=== PATIENT | female | born 1960 | race Caucasian/White ===

== ENCOUNTER 2017-03-06 06:03 | Day surgery (SDC) | payer OTHER ==
--- NOTE | 2017-03-04 13:33 | EKG REPORT ---
SEVERITY:- NORMAL ECG - SINUS RHYTHM : Confirmed by: Sergio Osuna MD 04-Mar-2017 13:32:38
[2017-03-04 13:39] LABS: APPEARANCE,URINE SLIGHTLY-CLOUDY; BILIRUBIN,URINE NEGATIVE (NEGATIVE); GLUCOSE, URINE >=500 mg/dL (NEGATIVE); KETONES,URINE NEGATIVE (NEGATIVE); LEUKOCYTE ESTERASE,URINE LARGE (NEGATIVE); NITRITE,URINE NEGATIVE (NEGATIVE); PROTEIN,URINE NEGATIVE (NEGATIVE); URINE SPECIFIC GRAVITY 1.026; UROBILINOGEN,URINE NEGATIVE mg/dL (<2.0)
--- NOTE | 2017-03-04 13:48 | RADIOLOGY REPORT (SQ) ---
EXAM DESCRIPTION: CHEST PA/LATERAL COMPLETED DATE/TIME: 03/04/2017 12:59 pm REASON FOR STUDY: PRE OP COMPARISON: None. EXAM PARAMETERS: NUMBER OF VIEWS: two views TECHNIQUE: Digital Frontal and Lateral radiographic views of the chest acquired. RADIATION DOSE: NA LIMITATIONS: none FINDINGS: LUNGS AND PLEURA: No opacities, masses or pneumothorax. No pleural effusion. MEDIASTINUM AND HILAR STRUCTURES: No masses or contour abnormalities. HEART AND VASCULAR STRUCTURES: Heart normal size. No evidence for failure. BONES: No acute findings. HARDWARE: None in the chest. OTHER: No other significant finding. IMPRESSION: NO SIGNIFICANT RADIOGRAPHIC FINDING IN THE CHEST. TECHNICAL DOCUMENTATION: JOB ID: [id number] [employer]- All Rights Reserved
[2017-03-04 14:00] LABS: HEMATOCRIT 43.5 % (36.0-47.0); HEMOGLOBIN 14.7 g/dL (12.0-15.5); HGB HCT DIFFERENCE 0.6; MEAN CORPUSCULAR HEMOGLOBIN 29.2 pg (27.0-33.4); MEAN CORPUSCULAR HGB CONC 33.8 g/dL (32.0-36.0); MEAN CORPUSCULAR VOLUME 87 fl (80-97); RED BLOOD COUNT 5.03 10^6/uL (3.72-5.28); RED CELL DISTRIBUTION WIDTH 13.7 % (11.5-14.0); WHITE BLOOD COUNT 10.4 10^3/uL (4.0-10.5)
[2017-03-04 14:14] LABS: ANION GAP 15 (5-19); BLOOD UREA NITROGEN 26 mg/dL (7-20); CALCIUM 9.9 mg/dL (8.4-10.2); CARBON DIOXIDE 30 mmol/L (22-30); CHLORIDE 98 mmol/L (98-107); CREATININE RESULT 0.88 mg/dL (0.52-1.25); GLUCOSE 156 mg/dL (75-110); POTASSIUM 5.1 mmol/L (3.6-5.0); SODIUM 143.3 mmol/L (137-145)
[~2017-03-06 06:03] MED LIST: LIDOCAINE 0.5% INJ-PF (5 MG/ML) 50 ML SDV SUBCUT PRN; NORMAL SALINE 1000 ML (RENAL PATIENTS) IV PRN
[2017-03-06] MEDS ORDERED: CEFAZOLIN 1 GM/D5W RTU 1 GM/50 ML RTUPB IV ONE (06:06)
[2017-03-06] MEDS ORDERED: LIDOCAINE 1%/EPINEPHRINE INJ 20 ML VIAL ONE (06:27)
[2017-03-06 07:04] LABS: POTASSIUM 4.4 mmol/L (3.6-5.0)
[2017-03-06] MEDS ORDERED: LIDOCAINE 2% INJ-PF (20 MG/ML) 10 ML AMPUL ONE (07:57)
[2017-03-06] MEDS ORDERED: PROPOFOL INJ 200 MG/20 ML VIAL IV ONE (07:57)
[2017-03-06] MEDS ORDERED: FENTANYL CITRATE INJ/PF 100 MCG/2 ML AMPUL ONE (07:57)
[2017-03-06] MEDS ORDERED: MIDAZOLAM 2 MG/2 ML INJ ONE (07:57)
[2017-03-06] MEDS ORDERED: OXYCODONE-ACETAMINOPHEN 5-325 MG TABLET PO PRN ×2 (08:27→09:20)
[2017-03-06] MEDS ORDERED: ONDANSETRON HCL INJ/PF 4 MG/2 ML SDV IV PRN (08:27)
[2017-03-06] MEDS ORDERED: FENTANYL CITRATE INJ/PF 100 MCG/2 ML AMPUL IV PRN ×2 (08:27)
[2017-03-06] MEDS ORDERED: PROMETHAZINE HCL INJ 25 MG/1 ML VIAL IV PRN ×2 (08:27)
[2017-03-06] MEDS ORDERED: MEPERIDINE HCL/PF INJ 25 MG/1 ML DISP.SYRIN IV PRN (08:27)
[2017-03-06] MEDS ORDERED: DIPHENHYDRAMINE HCL 50 MG/ML VIAL IV PRN (08:27)
[2017-03-06] MEDS ORDERED: MORPHINE SULFATE 10 MG/ML INJ INJ PRN (09:21)
[2017-03-06] MEDS ORDERED: PROMETHAZINE HCL INJ 25 MG/1 ML VIAL IM PRN (09:22)
--- NOTE | 2017-03-06 10:33 | OPERATIVE REPORT E ---
Operative Report NAME: LISBET PEÑA : 1960 AGE: 56Y DATE OF SURGERY: 03/06/2017 ROOM: PREOPERATIVE DIAGNOSES: 1. LEFT VULVAR LESION. 2. POSITIVE ECC, WITH AN ASCUS-POSITIVE HPV PAP. 3. MORBID OBESITY. PROCEDURE: Bi-lobe excision of vulvar lesion, and cold knife conization. SURGEON: MITCHELL ZAVALA M.D. ESTIMATED BLOOD LOSS: Less than 10 mL. COMPLICATIONS: None. ANESTHESIA: LMAC, paracervical block, and local. FINDINGS: Were that of a normal-appearing cervix, morbid obesity, difficulty locating the cervix proper. An approximately 3 x 3 cm vulvar pedunculated mass was appreciated. It was very fluctuant in nature, protruding from the left vulva. The usual risks of bleeding, infection, anesthesia, and damage to organs or tissue discussed with patient who understood. DESCRIPTION OF PROCEDURE: Patient was taken to the operating room and placed in the modified lithotomy position and adequate anesthesia ascertained. Surgical time out performed, EUA performed. Bladder was left undrained and a wide local excision of the vulvar area is performed after local infiltration with 1% lidocaine with epinephrine. The defect was oversewn with multiple layers of 3-0 Chromic catgut. Good hemostasis was assured and glue was placed on the incision site. Attention was then turned to the cervix which, with great difficulty, the cervix was located with bi-valve speculum. The area was infiltrated with 1% lidocaine with epinephrine. Local bi-lobed excision of the cone of the cervix was performed. It was a small cone due the small cervix. Endocervical biopsy was unproductive with no tissue. Uterus is otherwise unable to be sounded. Specimen was sent for pathology. It was marked at 12 o'clock position. Bleeding was nil after cautery of the bed of the cone with the ball electrode. At completion of procedure, patient awakened and taken to recovery room in stable condition. DICTATING PHYSICIAN: MITCHELL ZAVALA M.D. [id number] PHY#: [id number] ID: [id number] JOB#: [id number] ACCT: [id number] cc:MITCHELL ZAVALA M.D. >
[2017-03-06 13:35] VITALS: BP 133/85
[2017-03-06] MEDS ORDERED: IBUPROFEN 800 MG TABLET PO SCH (14:00)
== END 2017-03-06 11:05 | disposition home or self-care (01) ==
LOC: OROUT 06:03
PROVIDERS: ATTEND Specialist
PROC: 0UBMXZX Excision of Vulva, External Approach, Diagnostic (ICD-10-PCS; 2017-03-06)
PROC: 0UBC7ZX Excision of Cervix, Via Natural or Artificial Opening, Diagnostic (ICD-10-PCS; principal; 2017-03-06 08:15)
DX: N87.0 Mild cervical dysplasia (principal); D28.0 Benign neoplasm of vulva; E11.9 Type 2 diabetes mellitus without complications; I10 Essential (primary) hypertension; E78.00 Pure hypercholesterolemia, unspecified; E66.01 Morbid (severe) obesity due to excess calories; Z87.891 Personal history of nicotine dependence; Z68.42 Body mass index [BMI] 45.0-49.9, adult
CPT/HCPCS: 93005; 86900; 86901; 36415 ×2; 86850; 82962; 82947; 84132; 85027; 80048; 81001; 88304 ×2; 88307 ×2; 71020; 93010; 57520; 11424; J2250; J0690; J3010; J3490 ×2; J2704; 940

== ENCOUNTER → 2017-04-30 | Outpatient (CLI) | payer OTHER ==
--- NOTE | 2017-04-30 12:25 | RADIOLOGY REPORT (SQ) ---
EXAM DESCRIPTION: U/S ABDOMEN LIMITED W/O DOP COMPLETED DATE/TIME: 04/30/2017 10:30 am REASON FOR STUDY: RUQ PAIN R10.11 RIGHT UPPER QUADRANT PAIN COMPARISON: None. TECHNIQUE: Dynamic and static grayscale images acquired of the abdomen and recorded on PACS. [employer] effie selected color Doppler and spectral images recorded. LIMITATIONS: Limited exam due to patient body habitus. FINDINGS: PANCREAS: No masses. No peripancreatic edema or fluid collections. LIVER: Echotexture is coarse with increased echogenicity consistent with fatty infiltration. LIVER VASCULATURE: Normal directional flow of the main portal vein and hepatic veins. GALLBLADDER: No stones. Normal wall thickness. No pericholecystic fluid. ULTRASOUND-DETECTED RAMIREZ'S SIGN: Negative. INTRAHEPATIC DUCTS AND COMMON DUCT: CBD and intrahepatic ducts normal caliber. No filling defects. INFERIOR VENA CAVA: Normal flow. AORTA: No aneurysm. RIGHT KIDNEY: Normal size. Normal echogenicity. No solid or suspicious masses. No hydronephrosis. No calcifications. PERITONEAL AND RIGHT PLEURAL SPACE: No ascites or effusions. OTHER: No other significant finding. IMPRESSION: FATTY INFILTRATION OF THE LIVER. OTHERWISE NORMAL RIGHT UPPER QUADRANT ULTRASOUND. TECHNICAL DOCUMENTATION: JOB ID: [id number] [employer]- All Rights Reserved
[2017-05-01 09:39] LABS: COTININE URINE Negative ng/mL (Cutoff=300)
== END ==
LOC: RAD 09:42
PROVIDERS: ATTEND Surgery
DX: F17.200 Nicotine dependence, unspecified, uncomplicated (principal); R10.11 Right upper quadrant pain
CPT/HCPCS: 36415; 76705; 80307